=== PATIENT | male | born 1985 | race Caucasian/White ===

== ENCOUNTER 2017-01-14 11:59 | Emergency (ER) | payer MEDICAID ==
--- NOTE | 2017-01-14 15:27 | ER ---
ADMIT: 01/14/2017 RM/LOC: ER [facility] MR#: [id number] [address] [id number] MONAE HERRERA [address] [place] [address] Emergency Room Report SEX: M AGE: 31 : 1985 DATE: 01/14/2017 The patient is a 31-year-old male with past medical history ADD came to the ER with chief complaint of right lower tooth pain and fracture and right facial mild swelling for 5 days. The patient states he is still waiting to find a dentist to check it out. The patient denies any difficulty swallowing, change in the voice, drooling, fever at home, or dysphagia. PHYSICAL EXAMINATION: The patient was alert and oriented to person, place, and time. Temperature was 96.6, blood pressure was stable. Head and neck, mouth floor is normal and is not raised. There is mild swelling observed in the right jaw on the lateral part. On checking of the oropharynx, there is no peritonsillar abscess, there are no periodontal abscesses. Gingiva is red and inflamed, especially around right lower teeth. Tooth #30 in the posterior part is decayed and broken and is sensitive to touch. I covered the broken, decayed part with Prolene, calcium hydroxide successfully. The patient could be discharged to home with penicillin VK, [place] for pain control, and follow up with the dentist as soon as possible. The patient agreed with the plan and was discharged home. Mahesh Gar MD/ greg JOB #: [id number] CC: Mahesh Gar MD, Attending Physician Mahesh Gar MD, Family Physician
== END 2017-01-14 13:30 | disposition home or self-care (01) ==
LOC: ER 11:59
DX: S02.5XXA Fracture of tooth (traumatic), initial encounter for closed fracture (principal); K05.10 Chronic gingivitis, plaque induced; K02.9 Dental caries, unspecified; X58.XXXA Exposure to other specified factors, initial encounter